=== PATIENT | female | born 1955 | race Caucasian/White ===

== ENCOUNTER 2021-07-05 08:12 | Emergency (ER) | payer MEDICARE, OTHER ==
[~2021-07-05] VITALS: Ht 160 cm; Wt 63.5 kg
[2021-07-05 08:36] VITALS: BP 157/55
[2021-07-05] MEDS ORDERED: PHEN200T16 PO (08:43)
[2021-07-05] MEDS ORDERED: CIPR-173 PO (08:43)
[2021-07-05] MEDS ORDERED: PHENAZOPYRIDINE HCL 100 MG TAB PO ONE (08:45)
[2021-07-05] MEDS ORDERED: cefTRIAXone SOD 1,000 MG VL IM ONE (08:45)
[2021-07-05 09:24] LABS: Urine Bacteria FEW /hpf (None Seen); Urine Blood 2+ /uL (Negative); Urine Mucus FEW (None Seen); Urine Specific Gravity 1.023 (1.001-1.035); Urine WBC 908 /hpf (0 - 5)
== END 2021-07-05 09:18 | disposition home or self-care (01) ==
LOC: ER 08:12
DX: N39.0 Urinary tract infection, site not specified (principal); Z90.710 Acquired absence of both cervix and uterus; Z79.2 Long term (current) use of antibiotics; Z79.899 Other long term (current) drug therapy
CPT/HCPCS: 81001; 96372; 99283; J0696